=== PATIENT | female | born 1945 | race Caucasian/White ===

== ENCOUNTER → 2016-07-26 | Outpatient (CLI) | payer MEDICARE ==
[~2016-07-26] MED LIST: ADV100INH INH; ALDA25TA2 PO; AMIO20TA PO; DIGO0.12 PO; FERR325T3 PO; HYDR25T PO; LASI40TA PO; LYRI100C10 PO; PANT40TA2 PO; PERC5TAB6 PO; PRAD150C PO; PROA1AER INH; QUIN200T PO; VERA24TASA PO
[2016-07-26 10:22] LABS: INR 2.06
== END ==
LOC: M LAB 09:33
PROVIDERS: ATTEND Internal Medicine Cardiovascular Disease
DX: I48.0 Paroxysmal atrial fibrillation (principal)

== ENCOUNTER → 2016-08-17 | Outpatient (CLI) | payer MEDICARE ==
[2016-08-17 10:55] LABS: INR 2.04
== END ==
LOC: M LAB 09:46
PROVIDERS: ATTEND Physician Assistant
DX: I48.0 Paroxysmal atrial fibrillation (principal)

== ENCOUNTER → 2016-09-17 | Outpatient (CLI) | payer MEDICARE ==
[2016-09-17 09:45] LABS: MEAN CORPUSCULAR HEMOGLOBIN 33.4 pg (27.0-33.0); MEAN CORPUSCULAR HGB CONC 33.1 g/dl (32.0-36.5); RED CELL DISTRIBUTION WIDTH 12.4 % (11.5-14.5); WHITE BLOOD COUNT 5.3 K/mm3 (4.0-10.0)
[2016-09-17 09:54] LABS: INR 2.12
[2016-09-17 10:26] LABS: ALBUMIN 3.6 GM/DL (3.2-5.2); ANION GAP 8 MEQ/L (8-16); BLOOD UREA NITROGEN 24 MG/DL (7-18); CALCIUM LEVEL 8.4 MG/DL (8.8-10.2); CARBON DIOXIDE LEVEL 27 MEQ/L (21-32); CHLORIDE LEVEL 111 MEQ/L (98-107); CREATININE FOR GFR 0.88 MG/DL (0.55-1.02); GLOMERULAR FILTRATION RATE > 60.0 (>45); GLUCOSE, FASTING 78 MG/DL (80-110); MAGNESIUM LEVEL 2.1 MG/DL (1.8-2.4); PHOSPHORUS LEVEL 3.2 MG/DL (2.5-4.9); POTASSIUM SERUM 3.7 MEQ/L (3.5-5.1); SODIUM LEVEL 146 MEQ/L (136-145)
== END ==
LOC: M LAB 08:44
PROVIDERS: ATTEND Physician Assistant
DX: I48.0 Paroxysmal atrial fibrillation (principal)

== ENCOUNTER → 2016-10-15 | Outpatient (CLI) | payer MEDICARE ==
[2016-10-15 11:13] LABS: INR 1.97
== END ==
LOC: M LAB 10:36
PROVIDERS: ATTEND Physician Assistant
DX: I48.2 Chronic atrial fibrillation (principal)

== ENCOUNTER → 2016-11-14 | Outpatient (CLI) | payer MEDICARE ==
[2016-11-14 10:43] LABS: INR 2.35
== END ==
LOC: M LAB 09:56
PROVIDERS: ATTEND Internal Medicine Cardiovascular Disease
DX: I48.2 Chronic atrial fibrillation (principal)

== ENCOUNTER → 2016-12-13 | Outpatient (CLI) | payer MEDICARE ==
[2016-12-13 11:53] LABS: INR 2.12
== END ==
LOC: M LAB 10:52
PROVIDERS: ATTEND Nurse Practitioner Family
DX: Z51.81 Encounter for therapeutic drug level monitoring (principal); I48.2 Chronic atrial fibrillation; Z79.01 Long term (current) use of anticoagulants

== ENCOUNTER → 2017-01-10 | Outpatient (CLI) | payer MEDICARE ==
[~2017-01-10] MED LIST changes: +HYDR-3363 PO; -HYDR25T PO; -LYRI100C10 PO; +PERC5TAB12 PO; -PERC5TAB6 PO; +PREG100CA PO; -PROA1AER INH; +PROAAER10 INH
[2017-01-10 11:04] LABS: INR 2.32
== END ==
LOC: M LAB 09:57
PROVIDERS: ATTEND Physician Assistant
DX: I48.2 Chronic atrial fibrillation (principal)

== ENCOUNTER → 2017-01-10 | Outpatient (CLI) | payer MEDICARE ==
[2017-01-10 11:07] LABS: BLOOD UREA NITROGEN 23 MG/DL (7-18); CREATININE FOR GFR 0.81 MG/DL (0.55-1.02); GLOMERULAR FILTRATION RATE > 60.0 (>45)
== END ==
LOC: M LAB 10:00
PROVIDERS: ATTEND Physician Assistant Medical
DX: H60.8X1 Other otitis externa, right ear (principal); I48.2 Chronic atrial fibrillation

== ENCOUNTER → 2017-01-11 | Outpatient (CLI) | payer MEDICARE ==
--- NOTE | 2017-01-11 14:03 | REP ---
MRI STUDY OF THE BRAIN POSTERIOR FOSSA AND INTERNAL AUDITORY CANALS WITHOUT AND WITH IV GADOLINIUM: HISTORY: Bilateral sensorineural hearing loss. TECHNIQUE: Axial and coronal imaging planes are utilized. T1- and T2-weighted sequences include spin-echo, turbo spin-echo, FLAIR, 3D gradient echo, diffusion weighted, and post-gadolinium enhanced T1 spin-echo sequences. The gadolinium enhancement dose is 14 mL of intravenous ProHance. 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 There is mild mucosal thickening in the left ethmoid sinus. No other extracranial abnormality. No bony calvarial defect is seen. Thin section images through the posterior fossa demonstrate normal symmetric internal auditory canals. Seventh and eighth cranial nerves are unremarkable. No other cranial nerve abnormality is seen on thin section T2-weighted scans. There is no evidence of intracanalicular or extracanalicular contrast enhancement. No CP angle cistern mass is seen. There are small vessel atherosclerotic changes in the periventricular white matter of the supratentorial brain bilaterally. Diffusion weighted scan show no evidence to suggest acute ischemia. No mass, infarct, or extra-axial fluid collection is seen. No hemorrhage is noted. No other abnormal gadolinium enhancement is appreciated. IMPRESSION: Mild small vessel changes. Otherwise, normal posterior fossa internal auditory canal MRI study. Signed by Pelon Newman MD 01/11/2017 05:13 P
== END ==
LOC: M RAD 08:48
PROVIDERS: ATTEND Physician Assistant Medical
DX: H90.3 Sensorineural hearing loss, bilateral (principal)
CPT/HCPCS: 70553; A9576

== ENCOUNTER → 2017-02-07 | Outpatient (CLI) | payer MEDICARE ==
[2017-02-07 10:15] LABS: INR 3.18
== END ==
LOC: M LAB 08:50
PROVIDERS: ATTEND Internal Medicine Cardiovascular Disease
DX: Z51.81 Encounter for therapeutic drug level monitoring (principal); Z79.01 Long term (current) use of anticoagulants; I48.2 Chronic atrial fibrillation

== ENCOUNTER → 2017-02-14 | Outpatient (CLI) | payer MEDICARE ==
[2017-02-14 10:15] LABS: INR 6.51
== END ==
LOC: M LAB 09:11
PROVIDERS: ATTEND Physician Assistant
DX: I48.2 Chronic atrial fibrillation (principal)

== ENCOUNTER → 2017-02-18 | Outpatient (CLI) | payer MEDICARE ==
[2017-02-18 11:16] LABS: INR 1.97
== END ==
LOC: M LAB 10:38
PROVIDERS: ATTEND Physician Assistant
DX: Z51.81 Encounter for therapeutic drug level monitoring (principal); Z79.01 Long term (current) use of anticoagulants; I48.2 Chronic atrial fibrillation

== ENCOUNTER → 2017-02-25 | Outpatient (CLI) | payer MEDICARE ==
[2017-02-25 10:49] LABS: INR 2.02
== END ==
LOC: M LAB 10:23
PROVIDERS: ATTEND Physician Assistant
DX: Z51.81 Encounter for therapeutic drug level monitoring (principal); Z79.01 Long term (current) use of anticoagulants; I48.2 Chronic atrial fibrillation

== ENCOUNTER → 2017-03-25 | Outpatient (CLI) | payer MEDICARE ==
[2017-03-25 11:48] LABS: INR 2.18
== END ==
LOC: M LAB 11:01
PROVIDERS: ATTEND Physician Assistant
DX: Z51.81 Encounter for therapeutic drug level monitoring (principal); Z79.01 Long term (current) use of anticoagulants; I48.2 Chronic atrial fibrillation

== ENCOUNTER → 2017-04-22 | Outpatient (CLI) | payer MEDICARE ==
[2017-04-22 11:01] LABS: MEAN CORPUSCULAR HGB CONC 32.8 g/dl (32.0-36.5); MEAN CORPUSCULAR VOLUME 100.9 fl (80.0-96.0); RED CELL DISTRIBUTION WIDTH 13.9 % (11.5-14.5); WHITE BLOOD COUNT 5.8 10^3/uL (4.0-10.0)
[2017-04-22 11:14] LABS: INR 1.62
== END ==
LOC: M LAB 09:58
PROVIDERS: ATTEND Physician Assistant
DX: I48.2 Chronic atrial fibrillation (principal)

== ENCOUNTER → 2017-05-23 | Outpatient (CLI) | payer MEDICARE ==
[2017-05-23 10:53] LABS: INR 1.76
== END ==
LOC: M LAB 09:15
PROVIDERS: ATTEND Nurse Practitioner Family
DX: Z51.81 Encounter for therapeutic drug level monitoring (principal); Z79.01 Long term (current) use of anticoagulants; I48.2 Chronic atrial fibrillation

== ENCOUNTER → 2017-06-12 | Outpatient (CLI) | payer MEDICARE ==
--- NOTE | 2017-06-12 15:13 | REP ---
Clinical: Pain extending to the knee . Technique: Novoa scale and color Doppler evaluation using linear high frequency transducer. Findings: Ultrasound examination of the right lower extremity deep venous structures from the common femoral vein to the popliteal vein demonstrates normal compressibility flow and wave patterns in response to respiration and augmentation. There is no evidence for deep venous thrombosis. Incidental duplicated mid to distal femoral vein. Impression: No evidence for deep venous thrombosis. Signed by Trenton Pierson MD 06/12/2017 03:05 P
== END ==
LOC: M RAD 14:28
PROVIDERS: ATTEND Physician Assistant Surgical
DX: M79.604 Pain in right leg (principal); M17.11 Unilateral primary osteoarthritis, right knee

== ENCOUNTER → 2017-06-13 | Outpatient (CLI) | payer MEDICARE ==
[2017-06-13 10:11] LABS: INR 3.07
== END ==
LOC: M LAB 09:32
PROVIDERS: ATTEND Physician Assistant
DX: I48.2 Chronic atrial fibrillation (principal)

== ENCOUNTER → 2017-06-24 | Outpatient (CLI) | payer MEDICARE ==
[2017-06-24 11:08] LABS: INR 3.33
== END ==
LOC: M LAB 10:30
PROVIDERS: ATTEND Physician Assistant
DX: I48.2 Chronic atrial fibrillation (principal)

== ENCOUNTER → 2017-07-01 | Outpatient (CLI) | payer MEDICARE ==
[2017-07-01 10:10] LABS: INR 1.92
== END ==
LOC: M LAB 09:23
PROVIDERS: ATTEND Physician Assistant
DX: I48.2 Chronic atrial fibrillation (principal); Z79.01 Long term (current) use of anticoagulants

== ENCOUNTER 2017-07-05 15:00 | Inpatient (IN) | payer MEDICARE ==
[~2017-07-05 15:00] MED LIST changes: +ACETAMINOPHEN TAB 650MG DOSE (2X325MG) PO; -ADV100INH INH; -ALDA25TA2 PO; -AMIO20TA PO; -DIGO0.12 PO; -FERR325T3 PO; -HYDR-3363 PO; -LASI40TA PO; -PANT40TA2 PO; -PERC5TAB12 PO; -PRAD150C PO; -PREG100CA PO; -PROAAER10 INH; -QUIN200T PO; -VERA24TASA PO; +zolPIDEM TARTRATE 5 MG TAB PO
[2017-07-05 15:40] LABS: BASO % 0.4 % (0.0-1.0); EOS # 0.1 10^3/uL (0.0-0.50); EOS % 1.2 % (0.0-3.0); IMMATURE GRANULOCYTE % 0.1 % (0-0); LYMPH # 2.2 10^3/uL (1.5-4.5); LYMPH % 31.6 % (24.0-44.0); MEAN CORPUSCULAR HEMOGLOBIN 32.8 pg (27.0-33.0); MEAN CORPUSCULAR HGB CONC 33.3 g/dl (32.0-36.5); MEAN CORPUSCULAR VOLUME 98.4 fl (80.0-96.0); MONO # 0.5 10^3/uL (0.0-0.8); MONO % 7.6 % (0.0-5.0); NEUTROPHILS # 4.1 10^3/uL (1.8-7.7); NEUTROPHILS % 59.1 % (36.0-66.0); PLATELET COUNT, AUTOMATED 158 10^3/uL (150-450); RED CELL DISTRIBUTION WIDTH 13.5 % (11.5-14.5); WHITE BLOOD COUNT 6.9 10^3/uL (4.0-10.0)
[2017-07-05 16:04] LABS: ALBUMIN 3.7 GM/DL (3.2-5.2); ALBUMIN/GLOBULIN RATIO 1.09 (1.00-1.93); ALKALINE PHOSPHATASE 47 U/L (45-117); ALT/SGPT 22 U/L (12-78); ANION GAP 8 MEQ/L (8-16); AST/SGOT 16 U/L (7-37); BILIRUBIN,TOTAL 1.2 MG/DL (0.2-1.0); BLOOD UREA NITROGEN 22 MG/DL (7-18); CALCIUM LEVEL 9.1 MG/DL (8.8-10.2); CARBON DIOXIDE LEVEL 26 MEQ/L (21-32); CHLORIDE LEVEL 108 MEQ/L (98-107); CREATININE FOR GFR 1.26 MG/DL (0.55-1.02); GLOMERULAR FILTRATION RATE 44.7 (>39); GLUCOSE, FASTING 86 MG/DL (83-110); MAGNESIUM LEVEL 2.1 MG/DL (1.8-2.4); POTASSIUM SERUM 3.7 MEQ/L (3.5-5.1); SODIUM LEVEL 142 MEQ/L (136-145); TOTAL PROTEIN 7.1 GM/DL (6.4-8.2)
[2017-07-05 16:13] LABS: DIGOXIN LEVEL 0.6 NG/ML (0.5-2.0)
[2017-07-05] MEDS: WARFARIN SOD 2 MG TAB PO (17:06)
[2017-07-05] MEDS: DIGOXIN INJ 0.5 MG/2 ML AMP (J1160) IV (17:07)
[2017-07-05] MEDS: METOPROLOL TART 50 MG TAB PO ×2 (18:09→23:59)
[2017-07-05] MEDS: ALBUTEROL 90 MCG/ACT 8GM HFA INHALER INH (21:00)
[2017-07-05] MEDS: DOCUSATE SODIUM 100 MG CAP PO (21:19)
[2017-07-05] MEDS: ADVAIR HFA 115/21MCG INHALER INH (21:46)
[2017-07-06] MEDS: FLECAINIDE 50MG TABLET PO ×3 (02:58→21:30)
[2017-07-06 05:20] LABS: INR 2.68
[2017-07-06] MEDS: METOPROLOL TART 50 MG TAB PO ×2 (06:41→11:46)
[2017-07-06] MEDS: ADVAIR HFA 115/21MCG INHALER INH ×2 (08:02→21:13)
[2017-07-06] MEDS: ALBUTEROL 90 MCG/ACT 8GM HFA INHALER INH ×4 (08:08→21:00)
[2017-07-06] MEDS: MEGESTROL SUSP 400 MG/10 ML UDC PO (09:42)
[2017-07-06] MEDS: DOCUSATE SODIUM 100 MG CAP PO ×2 (09:42→21:29)
[2017-07-06] MEDS: DIGOXIN 0.25 MG TAB PO (09:43)
[2017-07-06] MEDS: METOPROLOL TART 12.5 MG PER 1/2 TAB PO ×2 (11:57→18:09)
[2017-07-06] MEDS: POTASSIUM CHLORIDE 10 MEQ SR TABLET PO ×2 (12:02→16:54)
[2017-07-06] MEDS: WARFARIN SOD 2 MG TAB PO (16:54)
[2017-07-07] MEDS: METOPROLOL TART 12.5 MG PER 1/2 TAB PO ×2 (00:39→06:00)
[2017-07-07] MEDS: FLECAINIDE 50MG TABLET PO ×2 (03:39→09:21)
[2017-07-07 05:06] LABS: INR 2.49
[2017-07-07 05:32] LABS: ANION GAP 10 MEQ/L (8-16); BLOOD UREA NITROGEN 29 MG/DL (7-18); CALCIUM LEVEL 7.9 MG/DL (8.8-10.2); CARBON DIOXIDE LEVEL 22 MEQ/L (21-32); CHLORIDE LEVEL 112 MEQ/L (98-107); CREATININE FOR GFR 1.06 MG/DL (0.55-1.02); DIGOXIN LEVEL 1.2 NG/ML (0.5-2.0); GLOMERULAR FILTRATION RATE 54.6 (>39); GLUCOSE, FASTING 83 MG/DL (83-110); PHOSPHORUS LEVEL 2.8 MG/DL (2.5-4.9); POTASSIUM SERUM 3.8 MEQ/L (3.5-5.1); SODIUM LEVEL 144 MEQ/L (136-145)
[2017-07-07] MEDS: ADVAIR HFA 115/21MCG INHALER INH (08:15)
[2017-07-07] MEDS: DOCUSATE SODIUM 100 MG CAP PO (09:20)
[2017-07-07] MEDS: DIGOXIN 0.25 MG TAB PO (09:20)
[2017-07-07] MEDS: MEGESTROL SUSP 400 MG/10 ML UDC PO (09:21)
[2017-07-07] MEDS ORDERED: METOPROLOL TART 25 MG TABLET PO (21:00)
[2017-07-08] MEDS ORDERED: DIGOXIN 0.125 MG TAB PO (09:00)
== END 2017-07-07 13:15 | disposition home or self-care (01) | DRG 309 ==
LOC: M PCU 15:00
PROVIDERS: Internal Medicine Cardiovascular Disease
DX: I48.0 Paroxysmal atrial fibrillation (principal); I50.42 Chronic combined systolic (congestive) and diastolic (congestive) heart failure; I11.0 Hypertensive heart disease with heart failure; R94.31 Abnormal electrocardiogram [ECG] [EKG]; I34.0 Nonrheumatic mitral (valve) insufficiency; Z87.891 Personal history of nicotine dependence; Z85.3 Personal history of malignant neoplasm of breast; Z90.11 Acquired absence of right breast and nipple; Z79.01 Long term (current) use of anticoagulants; Z88.5 Allergy status to narcotic agent; Z88.8 Allergy status to other drugs, medicaments and biological substances; Z79.899 Other long term (current) drug therapy

== ENCOUNTER → 2017-07-31 | Outpatient (CLI) | payer MEDICARE ==
[2017-07-31 12:04] LABS: INR 1.81; PROTHROMBIN TIME 21.5 SECONDS (12.4-14.5)
== END ==
LOC: M LAB 11:08
DX: Z79.01 Long term (current) use of anticoagulants (principal); I48.2 Chronic atrial fibrillation
CPT/HCPCS: 85610

== ENCOUNTER → 2017-08-19 | Outpatient (CLI) | payer MEDICARE ==
[2017-08-19 11:32] LABS: INR 2.56; PROTHROMBIN TIME 28.6 SECONDS (12.4-14.5)
== END ==
LOC: M LAB 10:30
DX: I48.2 Chronic atrial fibrillation (principal)
CPT/HCPCS: 85610

== ENCOUNTER → 2017-09-02 | Outpatient (CLI) | payer MEDICARE ==
[2017-09-02 09:46] LABS: INR 2.42; PROTHROMBIN TIME 27.3 SECONDS (12.4-14.5)
== END ==
LOC: M LAB 09:08
DX: I48.2 Chronic atrial fibrillation (principal)
CPT/HCPCS: 85610

== ENCOUNTER → 2017-09-24 | Outpatient (CLI) | payer MEDICARE ==
[2017-09-24 11:18] LABS: PROTHROMBIN TIME 57.2 SECONDS (12.4-14.5)
[2017-09-24 11:28] LABS: INR 6.02
== END ==
LOC: M LAB 10:01
DX: I48.2 Chronic atrial fibrillation (principal)
CPT/HCPCS: 85610

== ENCOUNTER → 2017-09-27 | Outpatient (CLI) | payer MEDICARE ==
[2017-09-27 10:03] LABS: INR 4.34; PROTHROMBIN TIME 43.9 SECONDS (12.4-14.5)
== END ==
LOC: M LAB 09:21
DX: I48.2 Chronic atrial fibrillation (principal)
CPT/HCPCS: 85610

== ENCOUNTER 2017-10-09 16:16 | Inpatient (IN) | payer MEDICARE ==
[2017-10-09 17:03] LABS: BASO # 0.1 10^3/uL (0.0-0.2); BASO % 0.6 % (0.0-1.0); EOS # 0.1 10^3/uL (0.0-0.50); EOS % 0.8 % (0.0-3.0); HEMATOCRIT 42.5 % (36.0-47.0); IMMATURE GRANULOCYTE % 0.3 % (0-3.0); LYMPH # 2.5 10^3/uL (1.5-4.5); MEAN CORPUSCULAR HEMOGLOBIN 32.7 pg (27.0-33.0); MEAN CORPUSCULAR HGB CONC 32.9 g/dl (32.0-36.5); MEAN CORPUSCULAR VOLUME 99.3 fl (80.0-96.0); MONO # 0.7 10^3/uL (0.0-0.8); MONO % 8.3 % (0.0-5.0); NEUTROPHILS # 4.7 10^3/uL (1.8-7.7); PLATELET COUNT, AUTOMATED 137 10^3/uL (150-450); RED BLOOD COUNT 4.28 10^6/uL (4.00-5.40); RED CELL DISTRIBUTION WIDTH 14.9 % (11.5-14.5); WHITE BLOOD COUNT 7.9 10^3/uL (4.0-10.0)
[2017-10-09 17:30] LABS: INFLUENZA A AMPLIFICATION NEGATIVE (NEGATIVE); INFLUENZA B AMPLIFICATION NEGATIVE (NEGATIVE)
[2017-10-09] MEDS: METOPROLOL 5 MG/5 ML VIAL IV ×3 (17:50→18:55)
[2017-10-09 17:51] LABS: ALBUMIN 3.6 GM/DL (3.2-5.2); ALBUMIN/GLOBULIN RATIO 1.16 (1.00-1.93); ALKALINE PHOSPHATASE 47 U/L (45-117); ALT/SGPT 35 U/L (12-78); ANION GAP 10 MEQ/L (8-16); AST/SGOT 20 U/L (7-37); BILIRUBIN,DIRECT 0.4 MG/DL (0.0-0.2); BILIRUBIN,TOTAL 1.2 MG/DL (0.2-1.0); BLOOD UREA NITROGEN 34 MG/DL (7-18); CALCIUM LEVEL 8.7 MG/DL (8.8-10.2); CARBON DIOXIDE LEVEL 21 MEQ/L (21-32); CHLORIDE LEVEL 111 MEQ/L (98-107); GLOMERULAR FILTRATION RATE 39.6 (>39); GLUCOSE, FASTING 105 MG/DL (70-100); POTASSIUM SERUM 3.9 MEQ/L (3.5-5.1); SODIUM LEVEL 142 MEQ/L (136-145); TOTAL PROTEIN 6.7 GM/DL (6.4-8.2)
[2017-10-09 18:21] LABS: NT-PRO BNP 27083 PG/ML (<125)
[2017-10-09] MEDS: DIGOXIN INJ 0.5 MG/2 ML AMP (J1160) IV ×2 (20:17→22:30)
[2017-10-09] MEDS: METOPROLOL TART 50 MG TAB PO ×2 (21:00→22:35)
[2017-10-10] LABS: PROTHROMBIN TIME 91.8 SECONDS (12.4-14.5)
[2017-10-10 00:02] LABS: INR 10.76
[2017-10-10] MEDS ORDERED: ACETAMINOPHEN 500 MG TAB PO (01:15)
[2017-10-10] MEDS ORDERED: ALBUTEROL 90 MCG/ACT 8GM HFA INHALER INH (01:15)
[2017-10-10] MEDS: AMIODARONE 150MG/3ML INJ (J0282) IVP (01:22)
[2017-10-10] MEDS: PHYTONADIONE 10MG/ML INJECTION (J3430) SC (01:30)
[2017-10-10] MEDS: AMIODARONE 200 MG TAB (PACERONE) PO ×5 (03:11→20:20)
[2017-10-10] MEDS: SENOKOT S TAB PO ×3 (03:11→20:20)
[2017-10-10 04:42] LABS: HEMATOCRIT 41.2 % (36.0-47.0); HEMOGLOBIN 13.5 g/dl (12.0-16.0); MEAN CORPUSCULAR HEMOGLOBIN 32.7 pg (27.0-33.0); MEAN CORPUSCULAR HGB CONC 32.8 g/dl (32.0-36.5); MEAN CORPUSCULAR VOLUME 99.8 fl (80.0-96.0); PLATELET COUNT, AUTOMATED 112 10^3/uL (150-450); RED BLOOD COUNT 4.13 10^6/uL (4.00-5.40); RED CELL DISTRIBUTION WIDTH 14.7 % (11.5-14.5); WHITE BLOOD COUNT 6.7 10^3/uL (4.0-10.0)
[2017-10-10] MEDS: AMIODARONE HCL 150 MG in APPROPRIATE DILUENT 1 EA IV (04:50)
[2017-10-10 05:08] LABS: CK-MB VALUE MASS < 1.0 NG/ML (<3.6); CPK CREATINE PHOSPHOKINASE 44 U/L (26-192); MB/CK RELATIVE INDEX 2.27 (< OR =4); TROPONIN I < 0.02 NG/ML (< 0.10)
[2017-10-10 05:15] LABS: ALBUMIN/GLOBULIN RATIO 1.03 (1.00-1.93); ALKALINE PHOSPHATASE 42 U/L (45-117); ALT/SGPT 30 U/L (12-78); ANION GAP 9 MEQ/L (8-16); AST/SGOT 22 U/L (7-37); BILIRUBIN,TOTAL 1.4 MG/DL (0.2-1.0); BLOOD UREA NITROGEN 29 MG/DL (7-18); CALCIUM LEVEL 7.9 MG/DL (8.8-10.2); CARBON DIOXIDE LEVEL 21 MEQ/L (21-32); CHLORIDE LEVEL 115 MEQ/L (98-107); CREATININE FOR GFR 1.24 MG/DL (0.55-1.30); FREE THYROXINE INDEX 4.3 % (1.3-4.8); GLOMERULAR FILTRATION RATE 45.5 (>39); GLUCOSE, FASTING 110 MG/DL (70-100); MAGNESIUM LEVEL 2.1 MG/DL (1.8-2.4); POTASSIUM SERUM 3.9 MEQ/L (3.5-5.1); SODIUM LEVEL 145 MEQ/L (136-145); T UPTAKE 42 % (30-39); THYROXINE (T4) 10.2 UG/DL (4.5-12.0); TOTAL PROTEIN 5.9 GM/DL (6.4-8.2)
[2017-10-10 05:45] LABS: INR 9.65
[2017-10-10] MEDS: MEGESTROL SUSP 400 MG/10 ML UDC PO (08:07)
[2017-10-10] MEDS: METOPROLOL TART 50 MG TAB PO (08:07)
[2017-10-10] MEDS ORDERED: PILL CUTTER/CRUSHER XX (11:30)
[2017-10-10 11:57] LABS: CK-MB VALUE MASS < 1.0 NG/ML (<3.6); CPK CREATINE PHOSPHOKINASE 39 U/L (26-192); MB/CK RELATIVE INDEX 2.56 (< OR =4); TROPONIN I 0.02 NG/ML (< 0.10)
[2017-10-10] MEDS: METOPROLOL TART 25 MG TABLET PO (12:25)
[2017-10-10] MEDS ORDERED: SLF 3 ML SYR IV (16:15)
[2017-10-10 16:48] LABS: PROTHROMBIN TIME 54.2 SECONDS (12.4-14.5)
[2017-10-10 16:59] LABS: INR 5.63
[2017-10-10] MEDS: ATENOLOL 50 MG TAB PO ×2 (17:23→20:21)
[2017-10-10] MEDS: AMIODARONE HCL 150 MG/100 ML PREMIXED BAG (NEXTERONE) IV (18:26)
[2017-10-10] MEDS: SLF 3 ML SYR IV (20:21)
[2017-10-11] MEDS: AMIODARONE HCL 150 MG in APPROPRIATE DILUENT 1 EA IV (02:59)
[2017-10-11] MEDS: ATENOLOL 50 MG TAB PO ×5 (03:06→23:37)
[2017-10-11 05:24] LABS: HEMATOCRIT 40.5 % (36.0-47.0); HEMOGLOBIN 13.3 g/dl (12.0-15.5); MEAN CORPUSCULAR HEMOGLOBIN 32.5 pg (27.0-33.0); MEAN CORPUSCULAR HGB CONC 32.8 g/dl (32.0-36.5); PLATELET COUNT, AUTOMATED 115 10^3/uL (150-450); RED BLOOD COUNT 4.09 10^6/uL (4.00-5.40); RED CELL DISTRIBUTION WIDTH 14.7 % (11.5-14.5); WHITE BLOOD COUNT 6.2 10^3/uL (4.0-10.0)
[2017-10-11] MEDS: SLF 3 ML SYR IV ×3 (05:27→20:38)
[2017-10-11 05:36] LABS: INR 2.64; PROTHROMBIN TIME 29.3 SECONDS (12.4-14.5)
[2017-10-11 05:44] LABS: ALBUMIN 2.6 GM/DL (3.2-5.2); ALBUMIN/GLOBULIN RATIO 0.87 (1.00-1.93); ALKALINE PHOSPHATASE 43 U/L (45-117); ALT/SGPT 24 U/L (12-78); ANION GAP 6 MEQ/L (8-16); AST/SGOT 16 U/L (7-37); BILIRUBIN,TOTAL 0.9 MG/DL (0.2-1.0); BLOOD UREA NITROGEN 25 MG/DL (7-18); CARBON DIOXIDE LEVEL 21 MEQ/L (21-32); CHLORIDE LEVEL 114 MEQ/L (98-107); CREATININE FOR GFR 1.04 MG/DL (0.55-1.30); GLOMERULAR FILTRATION RATE 55.8 (>39); GLUCOSE, FASTING 79 MG/DL (70-100); MAGNESIUM LEVEL 1.8 MG/DL (1.8-2.4); POTASSIUM SERUM 3.6 MEQ/L (3.5-5.1); SODIUM LEVEL 141 MEQ/L (136-145); TOTAL PROTEIN 5.6 GM/DL (6.4-8.2)
[2017-10-11] MEDS: DIGOXIN INJ 0.5 MG/2 ML AMP (J1160) IV (07:10)
[2017-10-11] MEDS ORDERED: ATENOLOL 50 MG TAB PO (08:00)
[2017-10-11] MEDS: SENOKOT S TAB PO ×2 (08:47→21:34)
[2017-10-11] MEDS: AMIODARONE 200 MG TAB (PACERONE) PO ×4 (08:47→20:38)
[2017-10-11] MEDS: MEGESTROL SUSP 400 MG/10 ML UDC PO (08:48)
[2017-10-11] MEDS ORDERED: ATENOLOL 25 MG TAB PO (09:00)
[2017-10-11] MEDS: LEVALBUTEROL 1.25 MG/0.5 ML CONCENTRATE NEB INH (20:28)
[2017-10-12 02:04] LABS: APPEARANCE, URINE HAZY (CLEAR); BACTERIA, URINE AUTO 1+ (NEGATIVE); BILIRUBIN, URINE AUTO NEGATIVE (NEGATIVE); BLOOD, URINE BLOOD 1+ (NEGATIVE); COLOR, URINE YELLOW (YELLOW); GLUCOSE, URINE (UA) AUTO NEGATIVE (NEGATIVE); KETONE, URINE AUTO NEGATIVE (NEGATIVE); LEUKOCYTE ESTERASE, URINE AUTO 1+ (NEGATIVE); MUCUS, URINE SMALL (NEGATIVE); NITRITE, URINE AUTO POSITIVE (NEGATIVE); PROTEIN, URINE AUTO NEGATIVE (NEGATIVE); RBC, URINE AUTO 3 /HPF (0-3); SPECIFIC GRAVITY URINE AUTO 1.019 (1.002-1.035); SQUAMOUS EPITHELIAL CELL UR AU 3 /HPF (0-6); WBC, URINE AUTO 21 /HPF (0-3)
[2017-10-12 02:05] LABS: OSMOLALITY URINE 765 MOSM/KG (500-800)
[2017-10-12 02:22] LABS: CHLORIDE,RANDOM URINE 122 MEQ/L; POTASSIUM RANDOM URINE 27.5 MEQ/L; SODIUM,RANDOM URINE 107 MEQ/L; TOTAL PROTEIN,RANDOM URINE 15.2 MG/DL (0.0-12.0)
[2017-10-12 04:04] LABS: HEMATOCRIT 41.4 % (36.0-47.0); HEMOGLOBIN 13.6 g/dl (12.0-15.5); MEAN CORPUSCULAR HEMOGLOBIN 32.4 pg (27.0-33.0); MEAN CORPUSCULAR HGB CONC 32.9 g/dl (32.0-36.5); MEAN CORPUSCULAR VOLUME 98.6 fl (80.0-96.0); PLATELET COUNT, AUTOMATED 130 10^3/uL (150-450); RED CELL DISTRIBUTION WIDTH 14.8 % (11.5-14.5); WHITE BLOOD COUNT 7.9 10^3/uL (4.0-10.0)
[2017-10-12 04:14] LABS: INR 1.61; PROTHROMBIN TIME 19.6 SECONDS (12.4-14.5)
[2017-10-12 04:24] LABS: ALBUMIN 2.6 GM/DL (3.2-5.2); ALBUMIN/GLOBULIN RATIO 0.84 (1.00-1.93); ALKALINE PHOSPHATASE 43 U/L (45-117); ALT/SGPT 20 U/L (12-78); ANION GAP 8 MEQ/L (8-16); AST/SGOT 10 U/L (7-37); BILIRUBIN,TOTAL 0.8 MG/DL (0.2-1.0); BLOOD UREA NITROGEN 23 MG/DL (7-18); CARBON DIOXIDE LEVEL 21 MEQ/L (21-32); CHLORIDE LEVEL 113 MEQ/L (98-107); CREATININE FOR GFR 0.84 MG/DL (0.55-1.30); GLOMERULAR FILTRATION RATE > 60.0 (>39); GLUCOSE, FASTING 89 MG/DL (70-100); MAGNESIUM LEVEL 1.9 MG/DL (1.8-2.4); POTASSIUM SERUM 3.7 MEQ/L (3.5-5.1); SODIUM LEVEL 142 MEQ/L (136-145); TOTAL PROTEIN 5.7 GM/DL (6.4-8.2)
[2017-10-12] MEDS: SLF 3 ML SYR IV ×3 (05:12→21:27)
[2017-10-12] MEDS: ATENOLOL 50 MG TAB PO ×3 (05:13→17:12)
[2017-10-12] MEDS: LEVALBUTEROL 1.25 MG/0.5 ML CONCENTRATE NEB INH ×2 (07:58→20:51)
[2017-10-12] MEDS: AMIODARONE 200 MG TAB (PACERONE) PO ×4 (09:09→21:26)
[2017-10-12] MEDS: SENOKOT S TAB PO ×2 (09:09→21:27)
[2017-10-12] MEDS: MEGESTROL SUSP 400 MG/10 ML UDC PO (09:09)
[2017-10-12] MEDS: APIXABAN 5 MG TAB (ELIQUIS) PO ×2 (14:39→21:26)
[2017-10-13] MEDS: ATENOLOL 50 MG TAB PO ×4 (00:23→17:52)
[2017-10-13 05:00] LABS: HEMATOCRIT 41.6 % (36.0-47.0); HEMOGLOBIN 13.6 g/dl (12.0-15.5); MEAN CORPUSCULAR HEMOGLOBIN 32.5 pg (27.0-33.0); MEAN CORPUSCULAR HGB CONC 32.7 g/dl (32.0-36.5); MEAN CORPUSCULAR VOLUME 99.5 fl (80.0-96.0); PLATELET COUNT, AUTOMATED 147 10^3/uL (150-450); RED BLOOD COUNT 4.18 10^6/uL (4.00-5.40); RED CELL DISTRIBUTION WIDTH 15.2 % (11.5-14.5); WHITE BLOOD COUNT 7.2 10^3/uL (4.0-10.0)
[2017-10-13] MEDS: SLF 3 ML SYR IV ×3 (05:01→20:40)
[2017-10-13 05:11] LABS: INR 2.17
[2017-10-13 05:18] LABS: ALBUMIN 2.6 GM/DL (3.2-5.2); ALBUMIN/GLOBULIN RATIO 0.74 (1.00-1.93); ALKALINE PHOSPHATASE 39 U/L (45-117); ALT/SGPT 16 U/L (12-78); ANION GAP 7 MEQ/L (8-16); AST/SGOT 14 U/L (7-37); BILIRUBIN,TOTAL 0.8 MG/DL (0.2-1.0); BLOOD UREA NITROGEN 22 MG/DL (7-18); CALCIUM LEVEL 7.9 MG/DL (8.8-10.2); CARBON DIOXIDE LEVEL 22 MEQ/L (21-32); CHLORIDE LEVEL 114 MEQ/L (98-107); CREATININE FOR GFR 0.89 MG/DL (0.55-1.30); GLOMERULAR FILTRATION RATE > 60.0 (>39); GLUCOSE, FASTING 85 MG/DL (70-100); MAGNESIUM LEVEL 1.8 MG/DL (1.8-2.4); SODIUM LEVEL 143 MEQ/L (136-145); TOTAL PROTEIN 6.1 GM/DL (6.4-8.2)
[2017-10-13] MEDS: LEVALBUTEROL 1.25 MG/0.5 ML CONCENTRATE NEB INH ×2 (08:20→21:58)
[2017-10-13] MEDS: APIXABAN 5 MG TAB (ELIQUIS) PO ×2 (09:09→20:40)
[2017-10-13] MEDS: SENOKOT S TAB PO ×2 (09:09→20:40)
[2017-10-13] MEDS: AMIODARONE 200 MG TAB (PACERONE) PO ×4 (09:09→20:40)
[2017-10-13] MEDS: MEGESTROL SUSP 400 MG/10 ML UDC PO (09:10)
[2017-10-14 05:26] LABS: HEMATOCRIT 39.5 % (36.0-47.0); HEMOGLOBIN 12.6 g/dl (12.0-15.5); MEAN CORPUSCULAR HEMOGLOBIN 31.6 pg (27.0-33.0); MEAN CORPUSCULAR HGB CONC 31.9 g/dl (32.0-36.5); PLATELET COUNT, AUTOMATED 144 10^3/uL (150-450); RED BLOOD COUNT 3.99 10^6/uL (4.00-5.40); RED CELL DISTRIBUTION WIDTH 14.9 % (11.5-14.5); WHITE BLOOD COUNT 6.1 10^3/uL (4.0-10.0)
[2017-10-14 05:49] LABS: ALBUMIN 2.7 GM/DL (3.2-5.2); ALBUMIN/GLOBULIN RATIO 0.84 (1.00-1.93); ALKALINE PHOSPHATASE 32 U/L (45-117); ALT/SGPT 14 U/L (12-78); ANION GAP 6 MEQ/L (8-16); AST/SGOT 11 U/L (7-37); BILIRUBIN,TOTAL 0.9 MG/DL (0.2-1.0); BLOOD UREA NITROGEN 22 MG/DL (7-18); CALCIUM LEVEL 8.3 MG/DL (8.8-10.2); CARBON DIOXIDE LEVEL 22 MEQ/L (21-32); CHLORIDE LEVEL 115 MEQ/L (98-107); CREATININE FOR GFR 0.81 MG/DL (0.55-1.30); GLOMERULAR FILTRATION RATE > 60.0 (>39); GLUCOSE, FASTING 82 MG/DL (70-100); MAGNESIUM LEVEL 1.9 MG/DL (1.8-2.4); SODIUM LEVEL 143 MEQ/L (136-145); TOTAL PROTEIN 5.9 GM/DL (6.4-8.2)
[2017-10-14] MEDS: ATENOLOL 50 MG TAB PO ×2 (06:00)
[2017-10-14] MEDS: SLF 3 ML SYR IV (06:11)
[2017-10-14] MEDS: LEVALBUTEROL 1.25 MG/0.5 ML CONCENTRATE NEB INH (08:03)
[2017-10-14] MEDS: APIXABAN 5 MG TAB (ELIQUIS) PO (08:29)
[2017-10-14] MEDS: AMIODARONE 200 MG TAB (PACERONE) PO (08:29)
[2017-10-14] MEDS: MEGESTROL SUSP 400 MG/10 ML UDC PO (08:29)
[2017-10-14] MEDS: SENOKOT S TAB PO (08:29)
== END 2017-10-14 10:57 | disposition home or self-care (01) | DRG 308 ==
LOC: M ED INP 10-10 01:19 → M ED 16:16 → M PCU 10-10 15:05
DX: I48.1 Persistent atrial fibrillation (principal); I50.41 Acute combined systolic (congestive) and diastolic (congestive) heart failure; I11.0 Hypertensive heart disease with heart failure; R94.31 Abnormal electrocardiogram [ECG] [EKG]; J45.909 Unspecified asthma, uncomplicated; Z90.11 Acquired absence of right breast and nipple; Z87.891 Personal history of nicotine dependence; Z79.01 Long term (current) use of anticoagulants; Z79.899 Other long term (current) drug therapy; Z91.14 Patient's other noncompliance with medication regimen; I34.0 Nonrheumatic mitral (valve) insufficiency

== ENCOUNTER 2018-01-23 21:02 | Emergency (ER) | payer MEDICARE ==
[2018-01-23] MEDS: diphenhydrAMINE INJ 50MG/ML VIAL (J1200) IV (21:15)
[2018-01-23] MEDS ORDERED: ALBUTEROL SULFATE 2.5 MG/0.5 ML INH NEB SOLN NEB (22:30)
[2018-01-23] MEDS: dexameTHASONE 20 MG/5 ML VIAL (J1100) IV (23:05)
[2018-01-24] MEDS ORDERED: KETOROLAC TROMETHAMINE 10 MG TAB PO ×2 (00:45)
[2018-01-24] MEDS: KETOROLAC 30 MG/ML VIAL (J1885) IV (00:56)
== END 2018-01-24 01:20 | disposition home or self-care (01) ==
LOC: M ED 01-24 01:20
DX: S76.011A Strain of muscle, fascia and tendon of right hip, initial encounter (principal); J20.9 Acute bronchitis, unspecified; W19.XXXA Unspecified fall, initial encounter; Y92.89 Other specified places as the place of occurrence of the external cause; Y93.89 Activity, other specified; Y99.9 Unspecified external cause status; J45.909 Unspecified asthma, uncomplicated; I49.5 Sick sinus syndrome; Z72.0 Tobacco use; Z79.899 Other long term (current) drug therapy; Z88.5 Allergy status to narcotic agent
CPT/HCPCS: J1200

== ENCOUNTER 2018-06-02 11:14 | Emergency (ER) | payer MEDICARE ==
[2018-06-02 12:41] LABS: BASO % 0.8 % (0.0-1.0); EOS % 0.8 % (0.0-3.0); HEMATOCRIT 44.9 % (36.0-47.0); HEMOGLOBIN 14.4 g/dl (12.0-15.5); IMMATURE GRANULOCYTE % 0.2 % (0-3.0); LYMPH # 1.2 10^3/uL (1.5-4.5); LYMPH % 23.3 % (24.0-44.0); MEAN CORPUSCULAR HEMOGLOBIN 31.8 pg (27.0-33.0); MEAN CORPUSCULAR HGB CONC 32.1 g/dl (32.0-36.5); MEAN CORPUSCULAR VOLUME 99.1 fl (80.0-96.0); MONO # 0.4 10^3/uL (0.0-0.8); MONO % 7.5 % (0.0-5.0); NEUTROPHILS # 3.3 10^3/uL (1.8-7.7); NEUTROPHILS % 67.4 % (36.0-66.0); PLATELET COUNT, AUTOMATED 198 10^3/uL (150-450); RED BLOOD COUNT 4.53 10^6/uL (4.00-5.40); RED CELL DISTRIBUTION WIDTH 15.7 % (11.5-14.5); WHITE BLOOD COUNT 4.9 10^3/uL (4.0-10.0)
[2018-06-02 12:57] LABS: AMMONIA 15 uMOL/L (<32)
[2018-06-02 13:04] LABS: LACTIC ACID SEPSIS PROTOCOL 1.1 MMOL/L (0.4-2.0)
[2018-06-02 13:10] LABS: POS COUNT POS FLAG
[2018-06-02 13:51] LABS: KETONE, URINE AUTO RFX NEGATIVE (NEGATIVE); LEUKOCYTE ESTERASE UR AUTO RFX NEGATIVE (NEGATIVE); MUCUS, URINE RFX SMALL (NEGATIVE); NITRITE, URINE AUTO RFX NEGATIVE (NEGATIVE); RBC, URINE AUTO RFX 5 /HPF (0-3); SPECIFIC GRAVITY UR AUTO RFX 1.035 (1.002-1.035); SQUAM EPITHELIAL CELL UR AURFX 1 /HPF (0-6); WBC, URINE AUTO RFX 0 /HPF (0-3)
[2018-06-02 14:06] LABS: AMPHETAMINES LEVEL URINE NEGATIVE (NEGATIVE); BARBITURATES URINE NEGATIVE (NEGATIVE); BENZODIAZEPINES URINE NEGATIVE (NEGATIVE); CANNABINOIDS URINE NEGATIVE (NEGATIVE); COCAINE METABOLITE URINE NEGATIVE (NEGATIVE); METHADONE URINE NEGATIVE (NEGATIVE); OPIATES URINE NEGATIVE (NEGATIVE); PHENCYCLIDINE URINE NEGATIVE (NEGATIVE)
[2018-06-02 14:35] LABS: ACETAMINOPHEN LEVEL < 2.0 UG/ML (10.0-30.0); ALBUMIN 3.4 GM/DL (3.2-5.2); ALBUMIN/GLOBULIN RATIO 0.89 (1.00-1.93); ALKALINE PHOSPHATASE 88 U/L (45-117); ALT/SGPT 11 U/L (12-78); ANION GAP 8 MEQ/L (8-16); AST/SGOT 11 U/L (7-37); BILIRUBIN,TOTAL 0.5 MG/DL (0.2-1.0); BLOOD UREA NITROGEN 20 MG/DL (7-18); CALCIUM LEVEL 8.7 MG/DL (8.8-10.2); CARBON DIOXIDE LEVEL 24 MEQ/L (21-32); CHLORIDE LEVEL 106 MEQ/L (98-107); CK-MB VALUE MASS < 1.0 NG/ML (<3.6); CPK CREATINE PHOSPHOKINASE 53 U/L (26-192); CREATININE FOR GFR 1.05 MG/DL (0.55-1.30); ETHYL ALCOHOL (ETHANOL) < 0.003 % (0.000-0.010); GLUCOSE, FASTING 78 MG/DL (70-100); MB/CK RELATIVE INDEX 1.89 (< OR =4); POTASSIUM SERUM 4.6 MEQ/L (3.5-5.1); SALICYLATE LEVEL < 1.7 MG/DL (5.0-30.0); SODIUM LEVEL 138 MEQ/L (136-145); TOTAL PROTEIN 7.2 GM/DL (6.4-8.2); TROPONIN I < 0.02 NG/ML (< 0.10)
== END 2018-06-02 15:28 | disposition home or self-care (01) ==
LOC: M ED 11:14
DX: R41.0 Disorientation, unspecified (principal); I48.91 Unspecified atrial fibrillation; I10 Essential (primary) hypertension; J45.909 Unspecified asthma, uncomplicated
CPT/HCPCS: 71045

== ENCOUNTER → 2018-10-01 | Outpatient (CLI) | payer MEDICARE ==
[~2018-10-01] MED LIST changes: -ACETAMINOPHEN TAB 650MG DOSE (2X325MG) PO; +ADV100INH INH; +ALDA25TA2 PO; +AMIO200T PO; +AMIO20TA PO; +ATEN50TA2 PO; +DIGO0.12 PO; +DIGO0.259 PO; +ELIQ5TAB PO; +FERR325T3 PO; +FURO20TA2 PO; +HYDR-3363 PO; +LASI40TA9 PO; +LOPR1TAB6 PO; +MEGE400SUS PO; +METO50TA7 PO; +OMEP20CA3 PO; +PANT40TA3 PO; +PATIENT COMMENT; +PERC5TAB12 PO; +PRAD150C PO; +PRED20TA PO; +PREG100CA PO; +PRIM50TA6 PO; +PROAAER10 INH; +QUIN200T PO; +TRAM50TA2 PO; +TYLE325T5 PO; +TYLE500T78 PO; +VENTAER INH; +VERA240C3 PO; +VERA24TASA PO; +WARF4TAB51 PO; -zolPIDEM TARTRATE 5 MG TAB PO
--- NOTE | 2018-10-01 16:47 | REP ---
HISTORY: Uterine enlargement with lower abdominal pain. There is no prior for comparison. Transvesical and transvaginal imaging was obtained. The uterus measures 6.4 x 2.5 x 4.2 cm. The parenchymal echo pattern is heterogenous. Tiny foci of increased echoes are seen throughout the uterine parenchyma suggestive of small parenchymal calcifications. Neither ovary was visualized transvesically or transvaginally. There is no free fluid in the cul-de-sac. The endometrial echo complex measures 7 mm in its greatest thickness and is somewhat heterogenous. Urinary bladder measures 7 x 5 x 5 cm. IMPRESSION: Uterine parenchymal findings as described above. Electronically Signed by Shaheed Wells DO 10/01/2018 05:05 P
== END ==
LOC: M RAD 13:01
PROVIDERS: ATTEND Nurse Practitioner
DX: R10.30 Lower abdominal pain, unspecified (principal); N85.2 Hypertrophy of uterus

== ENCOUNTER 2018-11-22 15:43 | Emergency (ER) | payer MEDICARE ==
[~2018-11-22] VITALS: Ht 165.1 cm; Wt 50.5 kg
[2018-11-22 15:43] VITALS: BP 141/74
[~2018-11-22 15:43] MED LIST changes: +AMIO200T22 PO; -AMIO20TA PO; -MEGE400SUS PO; -PRAD150C PO; +PRAD150C6 PO; +[UNRECOGNIZED DRUG - CODE] PO
[2018-11-22] MEDS ORDERED: CARB25TA9 PO (15:56)
[2018-11-22] MEDS ORDERED: AMLO5TAB6 PO (15:56)
[2018-11-22] MEDS ORDERED: ONDA4TAB6 PO (15:56)
[2018-11-22] MEDS ORDERED: LIDOCAINE 5% (LIDODERM) PATCH TD ONE (16:00)
[2018-11-22] MEDS ORDERED: KEFL500C17 PO (18:12)
[2018-11-22] MEDS ORDERED: **NOTE PATIENT COMMENT** MISC XX SCH (21:00)
--- NOTE | 2018-11-23 07:52 | REP ---
LUMBAR SPINE SERIES: FIVE VIEWS. HISTORY: Low back pain with right-sided SI joint and hip pain. COMPARISON STUDY: June 11, 2015 FINDINGS: There is moderate stool in the left colon. An old wedge compression deformity is seen at L3, unchanged from the June 11, 2015 prior study. The T12 vertebral body shows anterior wedging as well. This is a new finding when compared with the prior studies. On AP view, there is suggestion of paravertebral soft-tissue swelling. Pedicles and posterior elements appear intact. No other evidence of fracture or collapse is seen. Vertebral body heights are otherwise preserved. There is degenerative narrowing of the L4-5 and L3-4 disc spaces. Pedicles and posterior elements are intact. Sacrum and SI joints appear intact although visualization is somewhat impaired by the stool in the distal colon and bowel gas. IMPRESSION: Degenerative disc and facet changes, stable from June 11, 2015. Old wedging at L3, also unchanged. There is 30% loss of anterior vertebral body height at T12 as an interval finding. On AP view, there is a suggestion of paravertebral swelling. This may be a recent collapse at T12. No other acute abnormality. Moderate left colon stool. Electronically Signed by Pelon Newman MD 11/23/2018 09:19 A
== END 2018-11-22 18:22 | disposition home or self-care (01) ==
LOC: M ED 15:43
DX: M43.8X4 Other specified deforming dorsopathies, thoracic region (principal); M51.37 Other intervertebral disc degeneration, lumbosacral region; N39.0 Urinary tract infection, site not specified; M54.5 Low back pain; I50.9 Heart failure, unspecified; J44.9 Chronic obstructive pulmonary disease, unspecified; Z87.19 Personal history of other diseases of the digestive system; Z90.11 Acquired absence of right breast and nipple; F17.210 Nicotine dependence, cigarettes, uncomplicated; Z79.899 Other long term (current) drug therapy; Z79.01 Long term (current) use of anticoagulants; Z88.5 Allergy status to narcotic agent

== ENCOUNTER 2020-01-11 09:05 | Emergency (ER) | payer MEDICARE ==
[~2020-01-11 09:05] MED LIST changes: +AMLO5TAB6 PO; +CARB25TA9 PO; +DIGO0.123 PO; +KEFL500C17 PO; +OMEP1CAP73 PO; -OMEP20CA3 PO; +ONDA4TAB6 PO
[2020-01-11] MEDS ORDERED: LISI10TA15 PO (09:31)
[2020-01-11] MEDS ORDERED: ROPI0.5T3 PO (09:31)
[2020-01-11] MEDS ORDERED: MEGE400S10 PO (09:32)
[2020-01-11] MEDS ORDERED: METOPROLOL TART 25 MG TABLET PO ONE ×2 (09:45→12:00)
--- NOTE | 2020-01-11 09:51 | ECGEPIP ---
[facility] - ED Test Date: 2020-01-11 Pat Name: EUGENIO LYNCH Department: Room: - Gender: Female Talend Etl Developer: TRESSA : 1945 Requested By: Muna Aly Order Number: [id number] Reading MD: Muna Aly Measurements Intervals [place] Rate: 141 P: PA: 0 QRS: 37 QRSD: 82 T: 56 QT: 276 QTc: 424 Interpretive Statements ATRIAL FIBRILLATION WITH RAPID VENTRICULAR RESPONSE LOW QRS VOLTAGE IN EXTREMITY LEADS ANTEROSEPTAL MYOCARDIAL INFARCTION, PROBABLY OLD 06/02/18 sinus Electronically Signed on 01-11-2020 9:50:44 EDT by Muna Aly
[2020-01-11 09:58] LABS: BASO % 0.6 % (0.0-1.0); EOS % 0.6 % (0.0-3.0); HEMATOCRIT 47.1 % (36.0-47.0); HEMOGLOBIN 15.2 g/dl (12.0-15.5); LYMPH % 40.7 % (24.0-44.0); MEAN CORPUSCULAR HEMOGLOBIN 33.8 pg (27.0-33.0); MEAN CORPUSCULAR HGB CONC 32.3 g/dl (32.0-36.5); MEAN CORPUSCULAR VOLUME 104.7 fl (80.0-96.0); MONO # 0.4 10^3/uL (0.0-0.8); MONO % 7.5 % (0.0-5.0); NEUTROPHILS # 2.5 10^3/uL (1.5-8.5); NEUTROPHILS % 50.4 % (36.0-66.0); PLATELET COUNT, AUTOMATED 144 10^3/uL (150-450); WHITE BLOOD COUNT 4.9 10^3/uL (4.0-10.0)
[2020-01-11] MEDS: METOPROLOL 5 MG/5 ML VIAL IV SCH ×3 (10:03→10:28)
[2020-01-11 10:09] LABS: INR 1.17; PROTHROMBIN TIME 14.6 SECONDS (11.8-14.0)
[2020-01-11 10:14] VITALS: BP 123/98
--- NOTE | 2020-01-11 10:24 | REP ---
Clinical: Chest pain. Comparison: 06/02/2018. Findings: Mild cardiomegaly. Diffuse chronic-appearing interstitial changes similar to prior examination. No focal consolidation, obvious effusion, or pneumothorax. Skeletal structures demonstrate osteopenia and degenerative changes. Impression: Chronic stable changes. No obvious acute focal consolidation or effusion. Electronically Signed by Trenton Pierson MD 01/11/2020 10:15 A
[2020-01-11 10:29] LABS: ALBUMIN 3.9 GM/DL (3.2-5.2); BILIRUBIN,DIRECT 0.3 MG/DL (0.0-0.2); FREE T4 1.75 NG/DL (0.76-1.46); THYROID STIMULATING HORMONE 1.48 uIU/ML (0.358-3.740); TOTAL PROTEIN 7.2 GM/DL (6.4-8.2)
[2020-01-11 15:16] VITALS: BP 118/82
[2020-01-11] MEDS ORDERED: METO1TAB87 PO (15:21)
== END 2020-01-11 15:41 | disposition home or self-care (01) ==
LOC: M ED 09:05
DX: I48.91 Unspecified atrial fibrillation (principal); I10 Essential (primary) hypertension; Z79.899 Other long term (current) drug therapy; Z79.01 Long term (current) use of anticoagulants; Z88.5 Allergy status to narcotic agent; Z87.891 Personal history of nicotine dependence

== ENCOUNTER 2020-01-17 08:50 | Emergency (ER) | payer MEDICARE ==
[~2020-01-17] VITALS: Ht 162.6 cm; Wt 52.3 kg
[~2020-01-17 08:50] MED LIST changes: -AMIO200T PO; +AMIO200T3 PO; +AMLO1TAB24 PO; -AMLO5TAB6 PO; +LISI10TA15 PO; +MEGE400S10 PO; +METO1TAB87 PO; +PANT40TA29 PO; -PANT40TA3 PO; +ROPI0.5T3 PO
[2020-01-17] MEDS ORDERED: METOPROLOL TART 25 MG TABLET PO ONE (09:15)
--- NOTE | 2020-01-17 09:27 | REP ---
Clinical: Cough and dyspnea . Comparison: 01/11/2020 . Findings: The mediastinum and cardiac silhouette are stable and cardiomegaly is again noted. The lung franklin are clear without acute consolidation, effusion, or pneumothorax. Skeletal structures are intact. Impression: No focal consolidation or effusion. Electronically Signed by Trenton Pierson MD 01/17/2020 09:19 A
[2020-01-17 09:43] LABS: BASO % 0.5 % (0.0-1.0); EOS # 0.1 10^3/uL (0.0-0.5); EOS % 0.9 % (0.0-3.0); HEMATOCRIT 43.6 % (36.0-47.0); HEMOGLOBIN 14.2 g/dl (12.0-15.5); LYMPH # 1.7 10^3/uL (1.5-5.0); LYMPH % 28.4 % (24.0-44.0); MEAN CORPUSCULAR HEMOGLOBIN 33.7 pg (27.0-33.0); MEAN CORPUSCULAR HGB CONC 32.6 g/dl (32.0-36.5); MEAN CORPUSCULAR VOLUME 103.6 fl (80.0-96.0); MONO # 0.5 10^3/uL (0.0-0.8); MONO % 8.8 % (0.0-5.0); NEUTROPHILS # 3.6 10^3/uL (1.5-8.5); NEUTROPHILS % 61.1 % (36.0-66.0); PLATELET COUNT, AUTOMATED 135 10^3/uL (150-450); RED BLOOD COUNT 4.21 10^6/uL (4.00-5.40); WHITE BLOOD COUNT 5.8 10^3/uL (4.0-10.0)
[2020-01-17] MEDS ORDERED: FUROSEMIDE 20MG/2ML VIAL (J1940) IV ONE (10:15)
[2020-01-17] MEDS ORDERED: AMIODARONE HCL 150 MG in IV 1 EA IV STA ×2 (11:39→12:46)
--- NOTE | 2020-01-17 12:02 | ECGEPIP ---
[facility] - ED Test Date: 2020-01-17 Pat Name: EUGENIO LYNCH Department: Room: - Gender: Female Rn Tele: jac : 1945 Requested By: Muna Aly Order Number: [id number] Reading MD: Muna Aly Measurements Intervals [place] Rate: 119 P: [place]: 0 QRS: -3 QRSD: 86 T: 57 QT: 337 QTc: 475 Interpretive Statements ATRIAL FIBRILLATION WITH RAPID VENTRICULAR RESPONSE POSSIBLE ANTERIOR MYOCARDIAL INFARCTION, PROBABLY OLD ABNORMAL RHYTHM ECG decreased rate 01/11/20 Electronically Signed on 01-17-2020 12:01:48 EDT by Muna Aly
[2020-01-17 15:59] VITALS: BP 124/78
== END 2020-01-17 16:00 | disposition home or self-care (01) ==
LOC: EDBD 08:50 → M ED 08:50
DX: I48.91 Unspecified atrial fibrillation (principal); I10 Essential (primary) hypertension; J45.909 Unspecified asthma, uncomplicated; Z79.899 Other long term (current) drug therapy; Z79.01 Long term (current) use of anticoagulants; Z88.5 Allergy status to narcotic agent; F17.210 Nicotine dependence, cigarettes, uncomplicated
CPT/HCPCS: 71045; 80047; 83880; 84484; 85025; 93005; 93041; 94760; 96365; 96366; 96375; 99285; J0282; J1940

== ENCOUNTER 2020-04-09 11:34 | Emergency (ER) | payer OTHER, MEDICARE ==
[~2020-04-09] VITALS: Ht 162.6 cm; Wt 54.5 kg
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
[2020-04-09] MEDS ORDERED: ISOVUE-370 76% 100ML VIAL As Ordered ONE (12:31)
[2020-04-09] MEDS ORDERED: ONDANSETRON 4MG/2ML VIAL IV ONE (13:00)
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
[2020-04-09] MEDS: MORPHINE 2 MG/ML 1ML VIAL (J2270) IV PRN ×2 (13:09→14:17)
[2020-04-09] MEDS ORDERED: NS 1,000 ML IV SCH (13:30)
[2020-04-09] MEDS ORDERED: MORPHINE 4 MG/ML 1ML VIAL/SYRINGE (J2270) IV ONE (15:15)
[2020-04-09 15:35] VITALS: BP 135/66
--- NOTE | 2020-04-10 15:24 | ECGEPIP ---
[facility] - ED Test Date: 2020-04-09 Pat Name: EUGENIO LYNCH Department: Room: - Gender: Female Operations Leader: GABRIELA : 1945 Requested By: Andriy Morrison Order Number: [id number] Reading MD: Muna Aly Measurements Intervals [place] Rate: 92 P: [place]: 0 QRS: -21 QRSD: 101 T: 61 QT: 398 QTc: 493 Interpretive Statements ATRIAL FIBRILLATION LOW QRS VOLTAGE IN EXTREMITY LEADS ANTEROSEPTAL MYOCARDIAL INFARCTION, PROBABLY OLD DECREASED RATE 01/17/20 Electronically Signed on 04-10-2020 15:24:08 EDT by Muna Aly
== END 2020-04-09 15:42 | disposition short-term general hospital (02) ==
LOC: EDBD 11:34 → M ED 11:34
DX: S22.20XA Unspecified fracture of sternum, initial encounter for closed fracture (principal); S12.100A Unspecified displaced fracture of second cervical vertebra, initial encounter for closed fracture; V49.59XA Passenger injured in collision with other motor vehicles in traffic accident, initial encounter; Y92.410 Unspecified street and highway as the place of occurrence of the external cause; I10 Essential (primary) hypertension; I48.91 Unspecified atrial fibrillation; Z79.899 Other long term (current) drug therapy; Z79.01 Long term (current) use of anticoagulants; Z88.5 Allergy status to narcotic agent; Z87.891 Personal history of nicotine dependence
CPT/HCPCS: 70450; 71260; 72125; 80047; 93005; 93041; 96361; 96374; 96375; 96376; 99291; J2270; J2405; Q9967; U0002